=== PATIENT | female | born 1975 | race Caucasian/White ===

== ENCOUNTER 2021-01-22 12:14 | Day surgery (SDC) | payer OTHER, SELFPAY ==
--- NOTE | 2021-01-05 12:17 | PCM.HP.BLA ---
History and Physical Date of Admission: 01/22/21 HPI: The patient is a 45 year old female presenting for pre-operative visit. She is scheduled for hysteroscopy D&C with possible polypectomy and endometrial ablation, for abnormal uterine bleeding on 01/22/2021. Procedure discussed along with risks, benefits and complications. Other alternatives discussed for management. Consent form signed? Yes. ? ? PAST MEDICAL HISTORY PAST MEDICAL HISTORY Diagnosis Date ? Kidney stone ? ? Ovarian cyst ? ? ? PAST SURGICAL HISTORY PAST SURGICAL HISTORY Procedure Laterality Date ? LIGATE FALLOPIAN TUBE ? 2001 ? ? ? CURRENT MEDICATIONS Current Outpatient Medications Medication Sig Dispense Refill ? tranexamic acid (LYSTEDA) 650 mg tablet Take 2 tablets by mouth three times daily as needed (heavy menstrual bleeding) for up to 5 days. 30 tablet 0 ? tamsulosin (FLOMAX) 0.4 mg Take 0.4 mg by mouth. ? ? ? ondansetron orally disintegrating (ZOFRAN ODT) 4 mg disintegrating tablet DISSOLVE 1 TABLET on the tongue EVERY FOUR HOURS NEEDED for nausea ? ? ? Cranberry 400 mg cap Take 1 capsule by mouth. ? ? ? Magnesium 250 mg tab Take 1 tablet by mouth. ? ? ? Biotin 1 mg tab Take 1,000 mcg by mouth. ? ? ? naproxen (NAPROSYN) 500 mg tablet Take 500 mg by mouth twice daily as needed. ? ? ? norethindrone (AYGESTIN) 5 mg tablet Take 1 tablet by mouth once daily. ONE PO QID X 3 DAYS THEN TID X 3 DAYS THEN BID X 3 DAYS THEN ONE QDAY. 30 tablet 1 ? No current facility-administered medications for this visit. ? ? ALLERGIES: Patient has no known allergies. ? PERSONAL HISTORY: SOCIAL HISTORY Social History ? Tobacco Use ? Smoking status: Never Smoker ? Smokeless tobacco: Never Used Vaping Use ? Vaping Use: Never used Substance Use Topics ? Alcohol use: Not Currently ? Drug use: Never ? FAMILY HISTORY: FAMILY HISTORY No family history on file. ? REVIEW OF SYMPTOMS: GENERAL: denies fevers or chills ENDOCRINOLOGY: has not been on steroids Cardiology : denies palpitations or chest pain Respiratory: denies SOB or cough Hematology: denies history of prolonged bleeding or easy bruising or VTE Allergy: Denies history of personal or family history of allergy to anesthesia ? PHYSICAL EXAMINATION: ? VITALS: Last menstrual period 11/15/2020. ? GENERAL: The patient is well nourished, well hydrated in no acute distress. , The patient is oriented to time, place, and person. NECK: Supple. No lynphadenopathy, normal thyroid, no thyromegaly. LUNGS: Clear to auscultation bilaterally. no wheezes, rhonchi or rales HEART: Regular rate and rhythm, Normal heart sounds and No murmurs or gallops ? IMPRESSION: abnormal uterine bleeding ? PLAN: The risks/benefits/alternatives and personal involved for the planned hysteroscopy D&C with possible polypectomy and endometrial ablation were reviewed with the patient. Her questions were answered to her satisfaction and she desires to proceed. Consent was signed. I reviewed with her postop instructions and expectations. ? ? I have reviewed and updated past medical and surgical history, medications and allergies This H&P was completed in my office on 01/05/21. Assessment & Plan Assessment/Plan (1) Abnormal uterine bleeding (AUB):
[2021-01-20 10:05] LABS: Hematocrit 40.6 % (37-47); Mean Corpuscular Hgb 26.1 pg (27.0-32.0); Mean Corpuscular Volume 81.5 fL (81-99); Mean Platelet Vol. 10.6 fl (6.2-12.0); Platelet Count 266 K/mm3 (150-450); RBC Distribution Width CV 15.6 % (11.6-14.6); Red Blood Count 4.98 M/mm3 (4.2-5.4); White Blood Count 5.2 K/mm3 (4.4-11.0)
--- NOTE | 2021-01-22 | EMB_PTH ---
PATIENT: SEPIDEH MENDOZA LOC: [facility] [place] U#:[id number] AGE/SX: 45/F ROOM: RE01/22/[address]: Dr. Meghan Newton MD : [id number] BED: DIS: 01/22/2021 SPEC #: [id number] RECD: 01/23/21 07:38 STATUS: EDGAR AVILA #: [id number] ABRAM: 01/22/21 00:[address]: Meghan Newton DEPT: SURGICAL PATHOLOGY RECD BY: Shane Edwards Tissues: Endometrium, NOS Procedures: Surgery Specimen Level IV HEADER OPERATION: Hysteroscopy, D & C PRE-OP DIAGNOSIS: Abnormal uterine bleeding TISSUE SUBMITTED: Endometrial curettings MICROSCOPIC DIAGNOSIS Endometrium, curettings: Polypoid fragments of simple hyperplasia without atypia. Focal glandular breakdown. AM:ashley 01/26/2021 MICROSCOPIC DESCRIPTION Slides are reviewed. GROSS DESCRIPTION Received in fixative is one container labeled with the patient's name and designated endometrial curettings. The specimen consists of multiple irregular fragments of light to dark culp soft tissue that in aggregate measure 2.5 x 2.5 x 0.2 cm. The specimen is totally submitted in one cassette. / AM:ashley 01/23/21 TC:5 CPT: 99953
[2021-01-22 12:37] LABS: Internal QC Validated? YES +Cl - CLEAR BKGD
[2021-01-22 12:38] LABS: Pregnancy, Urine Negative Negative
[2021-01-22 12:40] VITALS: BP 142/86; PULSE 64; RESP 18; TEMP 36.2; O2SAT 100; BMI 25.9
[2021-01-22] MEDS: Lactated Ringers 1,000 ML 70 ML IV (12:40)
[2021-01-22] MEDS: Acetaminophen 500 MG Tablet 1000 MG PO (12:51)
[2021-01-22] MEDS: Celecoxib 200 MG Capsule 400 MG PO (12:51)
--- NOTE | 2021-01-22 17:10 | PCM.DC ---
Discharge Instructions Diet Discharge Diet: No restrictions Activity May resume sexual activity in: 2 weeks Lifting Restrictions: none Dressing / Incision Call your doctor if your incision/area has: Sudden Increased Bleeding and Foul Smelling Discharge Call your doctor if you observe: Fever of 101 or Higher and Using more than 1 pad per hour (for 2 hrs in a row) Follow Up Care Please Follow Up With: Meghan Newton MD When: 2-4 weeks or as needed. Call [phone] to make an appointment or with any concerns. Test Results: Test results from this visit will be discussed in further detail at your follow-up appointment, if applicable. Discharge Plan Admission Primary Reason for Your Visit: Hysteroscopy D&C with endometrial ablation Attending Provider: Meghan Newton Instructions Patient Instructions: Hysteroscopy Discharge Orders/Prescriptions Prescriptions: No Action magnesium 250 mg Tablet 250 mg PO DAILY RF: 0 Women's Daily Multivitamin 18-0.4 mg Tablet 1 tab PO DAILY RF: 0 cranberry extract-vitamin C 250-60 mg Capsule 1 cap PO DAILY RF: 0 biotin 1,000 mcg Tablet,Chewable 1,000 mcg PO DAILY RF: 0 Referrals / Follow Up: ANN MARIE SALCEDO [Other] Disposition Disposition (needs filled in before D/C Order can be placed): Home, Self Care
--- NOTE | 2021-01-22 17:26 | OP.PCM_ITS ---
Problems Associated Problem List Diagnoses (1) Abnormal uterine bleeding (AUB): Report of Operation Date of Procedure: 01/22/21 Pre-Operative Diagnosis: Abnormal uterine bleeding Post-Operative Diagnosis: same Surgery/Procedure Performed:: Hysteroscopy D&C with endometrial ablation Description of Surgical Findings:: lush endometrium, normal cervix and vagina Surgeon: Meghan Newton orchid worker: None Type of Anesthesia: MAC/Supplemental/Local Anesthesiologist: Andriy Foster Special Medications: none Specimen's removed: endometrial curettings Drains: 0 Estimated Blood Loss (mL): 10 Fluids Replaced: 800 Description of Procedure: The patient was taken to the OR where she was prepped and draped in dorsal lithotomy position. The weighted speculum was placed in the vagina and the anterior lip of the cervix was grasped with a single-tooth tenaculum. A paracervical block was administered with [1% lidocaine with 1- 100,000 epinephrine solution]. The cervix was dilated serially with Hegar dilators. The [5mm] hysteroscope was placed into the uterine cavity and the above findings were noted. Bilateral tubal ostia [were] identified. The uterus sounded to 8.5cm and the cervical length was [4]cm. The endometrial cavity length was 4.5cm. The hysteroscope was removed. [A gentle sharp curettage was done of the uterine cavity. The specimen was handed off and sent to pathology.] The Zhane device was set to 4.5cm. The instrument was then seated into the endometrial cavity and the indicator was in the green. The cervical seal balloon was inflated and the uterine integrity test was passed. The ablation procedure was initiated and completed without interruption. During the ablation procedure gentle traction was held on the tenaculum and the Zhane device was held up against the uterine fundus. When the ablation procedure was completed the Zhane was removed. The tenaculum was removed and the tenaculum site was noted to be hemostatic. All sponge and needle counts were correct. A vaginal sweep was performed by me. The patient was awakened and taken to the recovery room in stable condition. Hysteroscopic ins: 300cc normal saline Hysteroscopic outs:200cc Grafts/Implants Used: none Procedure Start Time: 17:32 Procedure Stop Time: 17:45 Complications none Admit VTE Documentation VTE Present on Admission: No VTE Mechan Device Prophylaxis: SCD's VTE Pharm Prophylaxis ordered?: No Reason prophylaxis not ordered:: Procedure Not Indicated
[2021-01-22] MEDS: Lidocaine 1% /Epi 1:100 (20ml) 20 ML Vial (17:35)
[2021-01-22 17:55] VITALS: BP 111/66; BP 142/86; PULSE 68; RESP 16; TEMP 36.2; O2SAT 99
[2021-01-22 18:00] VITALS: BP 112/69; BP 142/86; PULSE 66; RESP 16; O2SAT 100
[2021-01-22 18:05] VITALS: BP 115/70; BP 142/86; PULSE 73; RESP 16; O2SAT 100
[2021-01-22 18:10] VITALS: BP 127/86; BP 142/86; PULSE 68; RESP 16; TEMP 36.1; O2SAT 100
[2021-01-22 19:07] VITALS: BP 142/86; BP 153/86; PULSE 56; RESP 16; TEMP 36.1; O2SAT 100
== END 2021-01-22 19:16 | disposition home or self-care (01) ==
LOC: SDC 12:14 → AC 12:15
PROVIDERS: Anesthesiology; Visit Provider Obstetrics & Gynecology
PROC: 0UB98ZZ Excision of Uterus, Via Natural or Artificial Opening Endoscopic (ICD-10-PCS; CPT 58558; principal; 2021-01-22 13:40)
DX: N85.01 Benign endometrial hyperplasia (principal); Z87.442 Personal history of urinary calculi
CPT/HCPCS: 58563; 36415; 81025; 85027; 87635; 88305; C9803; J7120; U0005; J2405; U0003